=== PATIENT | female | born 1960 | race Asian ===

== ENCOUNTER 2017-01-27 09:39 | Emergency (ER) | payer BC, OTHER ==
[2017-01-27 09:45] VITALS: BP 138/83; PULSE 82; TEMP 98.8; BMI 25.8
--- NOTE | 2017-01-27 10:10 | PDOC ---
History of Present Illness - General Chief Complaint: Abscess Boil Stated Complaint: RT AXILLA RASH Time Seen by Provider: 01/27/17 09:54 History Source: Patient Exam Limitations: No Limitations - History of Present Illness Initial Comments: 01/27/17 10:05 cc REDNESS AND SWELLING TO RIGHT AXILLA X 3 DAYS Timing/Duration: reports: yesterday Respiratory Risk Factors: reports: other (POST SHAVING AND HOT TUB). denies: no cause identified Modifying Factors: worse with: antihistamine Past History - Past Medical History Allergies/Adverse Reactions: Allergies Allergy/AdvReac Type Severity Reaction Status Date / Time No Known Allergies Allergy Verified 01/27/17 09:45 Home Medications: Ambulatory Orders No Home Medications 0 dose .ROUTE UTDICT 07/29/13 Other medical history: NONE - Psycho/Social/Smoking Cessation Hx Anxiety: No Suicidal Ideation: No Smoking History: Never smoked Have you smoked in the past 12 months: No Number of Cigarettes Smoked Daily: 0 Hx Alcohol Use: No Substance Use Type: None Review of Systems - Review of Systems Constitutional: No: Chills, Fever HEENTM: No: Symptoms Reported Respiratory: No: Symptoms reported Cardiac (ROS): No: Symptoms Reported ABD/GI: No: Symptoms Reported Integumentary: Yes: Other (CELLULITIS ELFT AXILLA) *Physical Exam - Vital Signs Last Vital Signs Temp Pulse Resp BP Pulse Ox 98.8 F 82 20 138/83 100 01/27/17 09:41 01/27/17 09:41 01/27/17 09:41 01/27/17 09:41 01/27/17 09:41 - Physical Exam General Appearance: Yes: Appropriately Dressed. No: Apparent Distress HEENT: positive: TMs Normal, Pharynx Normal Neck: negative: Tender, Rigid Respiratory/Chest: positive: Lungs Clear Extremity: negative: Normal Capillary Refill Integumentary: positive: Erythema (RED AREA UNDER RIGHT AXILLA), Other Medical Decision Making - Medical Decision Making 01/27/17 10:07 AXILLA CELLUILITIS; NON FLUCT.; PT WILL RETURN 2 DAYS FOR REEVALUATION *DC/Admit/Observation/Transfer Diagnosis at time of Disposition: Cellulitis of right axilla - Discharge Dispostion Disposition: HOME Condition at time of disposition: Stable Admit: No - Patient Instructions Additional Instructions: RETURN TO ED IN 2 DAYS FOR REEVALUATION; YOU MAY NEED A DRAINAGE OF AREA THEN; WARM SOAKS TO AREA
== END 2017-01-27 10:14 | disposition home or self-care (01) ==
LOC: JERFT 09:39
DX: L03.111 Cellulitis of right axilla (principal)
CPT/HCPCS: 99281-25

== ENCOUNTER 2017-01-29 13:40 | Emergency (ER) | payer BC ==
[2017-01-29 14:14] VITALS: BMI 27.6
[2017-01-29] MEDS ORDERED: DALBAVANCIN HCL 1,500 MG in DEXTROSE 5%-WATER - 500 ML IVPB ONE (16:44)
[2017-01-29] MEDS ORDERED: DALBAVANCIN HCL 500 MG VIAL (RESTRICTED TO ID ONLY) IVPB ONE (17:14)
[2017-01-29] MEDS ORDERED: IBUPROFEN 600 MG TABLET (FP) PO ONE ×2 (17:14→17:27)
[2017-01-29] MEDS ORDERED: IBUPROFEN 100 MG/5 ML UNIT DOSE CUPS ONE (17:32)
--- NOTE | 2017-01-29 17:41 | PDOC ---
History of Present Illness - General History Source: Patient Exam Limitations: No Limitations - History of Present Illness Initial Comments: 01/29/17 17:41 The patient is a 56 year old female, with no significant past medical history, who presents to the emergency department with swelling and erythema to the right axilla for approximately 5 days. As per records, the patient recently presented to the ED 2 days ago with a similar symptoms, and was started on Bactrim. Patient reports the redness had spread down her right bicep and the mass on the right axilla has bursted. She reports pain at the site of the infection. Patient denies any associated fevers, chills, numbness, or tingling. Patient reports a similar infection approximately 1 year ago, which resolved with antibiotics. She denies any chest pain, shortness of breath, diaphoresis, or palpitations. Patient denies any recent travel or sick contacts. 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 Non smoker. No ETOH or drug use. <Jimy Batres - Last Filed: 01/29/17 17:43> <Joseph Pino - Last Filed: 01/29/17 19:25> - General Chief Complaint: Abscess Boil Stated Complaint: ABSCESS ON ARM Time Seen by Provider: 01/29/17 14:45 Past History <Jimy Batres - Last Filed: 01/29/17 17:43> - Past Medical History Other medical history: DENIES. - Psycho/Social/Smoking Cessation Hx Anxiety: No Suicidal Ideation: No Smoking History: Never smoked Have you smoked in the past 12 months: No Number of Cigarettes Smoked Daily: 0 Hx Alcohol Use: No Substance Use Type: None <Joseph Pino - Last Filed: 01/29/17 19:25> - Past Medical History Allergies/Adverse Reactions: Allergies Allergy/AdvReac Type Severity Reaction Status Date / Time No Known Allergies Allergy Verified 01/29/17 14:09 Review of Systems - Review of Systems Constitutional: No: Chills, Fever, Night Sweats, Unexplained wgt Loss Respiratory: No: Cough, Shortness of Breath Cardiac (ROS): No: Chest Pain Integumentary: Yes: See HPI <Joseph Pino - Last Filed: 01/29/17 19:25> *Physical Exam - Vital Signs Last Vital Signs Temp Pulse Resp BP Pulse Ox 98.5 F 77 20 117/55 99 01/29/17 16:44 01/29/17 16:44 01/29/17 16:44 01/29/17 16:44 01/29/17 16:44 - Physical Exam Comments: 01/29/17 17:42 GENERAL: Tearful, but otherwise alert and appropriate. The patient is awake, alert, and fully oriented, in no acute distress. HEAD: Normal with no signs of trauma. EYES: Pupils equal, round and reactive to light, extraocular movements intact, sclera anicteric, conjunctiva clear. EXTREMITIES: Normal range of motion, no edema. NEUROLOGICAL: Neurovascularly intact distally. Normal speech, normal gait. PSYCH: Appropriate but initially tearful due to stress of infection and her being away in the [facility]. Denies any suicidal ideations or depression. SKIN: 3 cm draining, predominantly nonindurated mass on right axilla. Limited fluctuance remaining. But there is cellulitis spreading peripherally on the medial aspect of the upper arm and ending proximal to the elbow. Non- circumferential mass. No significant axillary lymphadenopathy or breast abnormality. Neurovascularly intact distally. Otherwise warm, Dry, normal turgor , no rashes or lesions noted. <Jimy Batres - Last Filed: 01/29/17 17:43> - Vital Signs Last Vital Signs Temp Pulse Resp BP Pulse Ox 98.5 F 77 20 117/55 99 01/29/17 16:44 01/29/17 16:44 01/29/17 16:44 01/29/17 16:44 01/29/17 16:44 <Joseph Pino - Last Filed: 01/29/17 19:25> ED Treatment Course - Medications Given in the ED: ED Medications Discontinued Medications Generic Name Dose Route Start Last Admin Trade Name Freq PRN Reason Stop Dose Admin Dalbavancin 1,500 mg/ Dextrose 500 mls @ 1,000 mls/hr 01/29/17 16:44 01/29/17 17:34 IVPB 01/29/17 17:13 1,000 mls/hr ONCE ONE Administration Ibuprofen 600 mg 01/29/17 17:14 01/29/17 17:34 Motrin - PO 01/29/17 17:15 600 mg ONCE ONE Administration <Jimy Batres - Last Filed: 01/29/17 17:43> Medical Decision Making - Medical Decision Making 01/29/17 17:27 A portion of this note was documented by scribe services under my direction. I have reviewed the details of the note, within reason, and agree with the documentation with the following case summary and management plan written by me. 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 Has been taking the abx but with expanding redness to R arm, presents discomfort to the right axilla and right arm with drainage of some pus today. No motor or sensory deficit, no joint pathology, no fevers or chills. Afebrile, vital signs normal. Slightly tearful, as noted in note secondary to stressors and being the [facility] area otherwise denies any acute psychiatric issues. 2-3 cm area of superficial induration in the right axilla with 2 or 3 mm open wound draining some dried pus, peripherally extending cellulitis on the medial aspect of the upper arm. No joint involvement, neurovascularly intact. No masses or significant lymphadenopathy. INCISION AND DRAINAGE PROCEDURE: The skin was prepped with ChloraPrep solution. 2% lidocaine was injected subcutaneously for local anesthesia. Incision of the center of the abscess was performed with a #11 blade. Predominantly sanguinous material was expressed from the incision, very little remaining pus. Nothing available for culture. A curved clamp was used to break up loculations within the abscess. No further purulent material was expressed. Gauze packing was placed within the wound. A clean, dry, sterile dressing was placed. Patient was advised regarding wound care and followup for packing removal. 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 Will need wound check by Wednesday, at which point the packing can likely be removed. Will reassess and dispo. 01/29/17 18:53 Completed dalvance. Dressing/site clean/dry. Feels well, agrees with d/c plan. No need to continue bactrim. Will return Wednesday for wound check, knows to return sooner for any concerning symptoms. <Joseph Pino - Last Filed: 01/29/17 19:25> *DC/Admit/Observation/Transfer - Attestations Scribe Attestion: 01/29/17 17:42 Documentation prepared by Jimy Batres, acting as manager medical writing for Joseph Pino MD. <Jimy Batres - Last Filed: 01/29/17 17:43> <Joseph Pino - Last Filed: 01/29/17 19:25> Diagnosis at time of Disposition: Cellulitis of axilla, right, Abscess of right axilla - Discharge Dispostion Disposition: HOME Condition at time of disposition: Improved - Referrals Referrals: Per [facility]and[facility] [Non Staff, Medical] - - Patient Instructions Printed Discharge Instructions: DI for Incision and Drainage of a Skin Abscess , DI for Cellulitis -- Adult Additional Instructions: Activity as tolerated. Stay hydrated. Maintain dressing, keep clean and dry. No soaking or scrubbing. Return to your primary physician or the emergency department on Wednesday morning for a wound check, at which time the packing may be removed. The redness on the arm is a cellulitis. Because it was getting worse on the Bactrim, you received a dose of Dalvance through the IV. You can stop the Bactrim. Tylenol 1000 mg every 8 hours and/or ibuprofen 600 mg every 8 hours as needed for pain. Continue your medications as previously prescribed by your physician. You should follow up on Wednesday your primary doctor or the ER as soon as possible regarding today's emergency department visit. Once the infection resolves, you should see your primary doctor for a routine physical and lymph node evaluation. Return to the emergency department for any new or concerning symptoms, particularly worsening redness or swelling, increased blood or pus, fevers or chills, intolerable pain, numbness or tingling. Print Language: AZERI - Post Discharge Activity Work/School Note: Back to Work
[2017-01-29 18:54] VITALS: BP 106/53; PULSE 62; TEMP 98.4
== END 2017-01-29 19:26 | disposition home or self-care (01) ==
LOC: JERFT 13:40 → JER 13:40
PROC: 0X943ZZ Drainage of Right Axilla, Percutaneous Approach (ICD-10-PCS; principal; 2017-01-29)
PROC: 3E03329 Introduction of Other Anti-infective into Peripheral Vein, Percutaneous Approach (ICD-10-PCS; 2017-01-29)
DX: L02.411 Cutaneous abscess of right axilla (principal); L03.111 Cellulitis of right axilla; L03.113 Cellulitis of right upper limb
CPT/HCPCS: 99283-25; J0875

== ENCOUNTER 2017-01-31 20:20 | Emergency (ER) | payer BC ==
[2017-01-31 20:26] VITALS: BP 110/68; PULSE 78; TEMP 98.1; BMI 27.6
--- NOTE | 2017-01-31 21:34 | PDOC ---
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 Patient was on Bactrim but was discontinued and given a dose of Dalbavancin in the ED. Patient states the redness improved and has receded but still has pain. Past History - Travel Traveled outside of the country in the last 30 days: No - Past Medical History Allergies/Adverse Reactions: Allergies No Known Allergies Allergy (Verified 01/31/17 20:26) - Immunization History Tetanus Status: Unknown - Social History Smoking Status: Never smoked Number of Ciarettes Per Day: 0 Suture Removal/Wound Check PE - Physical Exam Laceration/Wound Check Symptoms: reports: None, Other Comment (right axilla with packing, small amount of drainage, redness improved now just) Medical Decision Making - Medical Decision Making 01/31/17 21:50 Packing removed without complications, minimal discharge. Still some surrounding cellulitis but much improved. wound cleaned and dry dressing applied. inst to continue warm compress and shower to the area. Anitbx discontinued given Dalvance in the ED 3 days ago. I discussed the physical exam findings, ancillary test results and final diagnoses with the patient. I answered all of the patient's questions. The patient was satisfied with the care received and felt comfortable with the discharge plan and treatment plan. The Patient agrees to follow up with the primary care physician within 24-72 hours. *DC/Admit/Observation/Transfer Diagnosis at time of Disposition: Wound of cheek Qualifiers: Encounter type: subsequent encounter Laterality: right Qualified Code(s): S01.401D - Unspecified open wound of right cheek and temporomandibular area, subsequent encounter - Discharge Dispostion Disposition: HOME Condition at time of disposition: Stable - Referrals Referrals: [place],Per C [Primary Care Provider] - - Patient Instructions Printed Discharge Instructions: DI for Wound Infection Additional Instructions: continue water showers to the area, watch for continue redness and discharge. follow up with pmd in 1-2 days - Post Discharge Activity Work/School Note: Back to Work
== END 2017-01-31 21:59 | disposition home or self-care (01) ==
LOC: JERFT 20:20
DX: Z09 Encounter for follow-up examination after completed treatment for conditions other than malignant neoplasm (principal)
CPT/HCPCS: 99281-25